=== PATIENT | female | born 1980 | race African-American/Black ===

== ENCOUNTER 2021-05-09 04:47 | Emergency (ER) | payer MEDICAID ==
[~2021-05-09] VITALS: Ht 160 cm; Wt 113.6 kg
[2021-05-09] MEDS ORDERED: LIDOCAINE 5% (LIDODERM) PATCH TD ONE (06:25)
[2021-05-09] MEDS ORDERED: KETOROLAC 60MG 2ML VIAL IM ONE (06:25)
--- NOTE | 2021-05-09 07:27 | REPVR ---
PROCEDURE INFORMATION: Exam: US Duplex Right Upper Extremity Veins, Limited Exam date and time: 05/09/2021 6:54 AM Age: 41 years old Clinical indication: Pain; Arm, upper; Right; Additional info: Arm pain TECHNIQUE: Imaging protocol: Real-time Duplex ultrasound of the Right Upper Extremity with 2-D smith scale, color Doppler flow and spectral waveform analysis with image documentation. Limited exam focused on the right upper extremity veins. COMPARISON: CR Shoulder, complete RIGHT 05/09/2021 6:30 AM FINDINGS: Right deep veins: Unremarkable. Axillary and brachial veins are patent throughout without thrombus. Normal Doppler waveforms. Normal compressibility and/or augmentation response. Visualized internal jugular and subclavian veins are patent. Right superficial veins: Unremarkable. Visualized cephalic and basilic veins are patent without thrombus. Soft tissues: Unremarkable. IMPRESSION: No evidence of deep vein thrombosis. Electronically signed by: Felipe Tomlin On 05/09/2021 07:26:29 AM
--- NOTE | 2021-05-09 07:34 | REPVR ---
PROCEDURE INFORMATION: Exam: XR Right Shoulder Exam date and time: 05/09/2021 6:44 AM Age: 41 years old Clinical indication: Pain; Upper arm; Right; Additional info: Arm pain TECHNIQUE: Imaging protocol: XR Right shoulder. Views: 2 or more views. COMPARISON: No relevant prior studies available. FINDINGS: Bones/joints: Bone mineralization is normal. Bones are intact with preservation of the acromioclavicular and glenohumeral joints. No fracture, dislocation or significant arthritic change. Soft tissues: Unremarkable. IMPRESSION: Unremarkable right shoulder. No acute bony abnormality. Electronically signed by: Felipe Tomlin On 05/09/2021 07:34:15 AM
[2021-05-09 08:18] VITALS: BP 115/72
[2021-05-09] MEDS ORDERED: **NOTE PATIENT COMMENT** MISC XX SCH (21:00)
== END 2021-05-09 08:20 | disposition home or self-care (01) ==
LOC: M ED 04:47
DX: M25.511 Pain in right shoulder (principal); R20.2 Paresthesia of skin; F17.200 Nicotine dependence, unspecified, uncomplicated
CPT/HCPCS: 73030; 93971; 99283; J1885